=== PATIENT | female | born 1990 | race Two or more races ===

== ENCOUNTER 2019-12-25 17:38 | Emergency (ER) | payer MEDICAID, OTHER ==
[~2019-12-25] VITALS: Ht 157.5 cm; Wt 79.4 kg
[2019-12-25 17:58] VITALS: BP 108/63
[2019-12-25 18:42] LABS: Urine Bacteria NONE SEEN /hpf (None Seen); Urine Blood Negative /uL (Negative); Urine WBC 1 /hpf (0 - 5)
== END 2019-12-26 00:03 | disposition left against medical advice (07) ==
LOC: ER 17:38
DX: R42 Dizziness and giddiness (principal); R11.2 Nausea with vomiting, unspecified; N93.9 Abnormal uterine and vaginal bleeding, unspecified; Z53.21 Procedure and treatment not carried out due to patient leaving prior to being seen by health care provider
CPT/HCPCS: 36415; 76801; 76817; 81001; 81025; 84702

== ENCOUNTER 2019-12-28 15:51 | Emergency (ER) | payer MEDICAID ==
[~2019-12-28] VITALS: Ht 157.5 cm; Wt 79.4 kg
[2019-12-28] MEDS ORDERED: SODIUM CHLORIDE 0.9% 1,000 ML IV ONE (16:15)
[2019-12-28] MEDS ORDERED: PROMETHAZINE HCL 25 MG/ML 1ML IV ONE (16:15)
[2019-12-28 16:52] LABS: Basophils # (auto) 0 10 ^3/uL (0-0.2); Basophils % (auto) 0.5 % (0.0-2.0); Eosinophils # (auto) 0.1 10 ^3/uL (0-0.8); Eosinophils % (auto) 1.3 % (0.0-7.0); Hematocrit 41.1 % (36.0-46.0); Lymphocytes # (auto) 2.5 10 ^3/uL (0.4-5.4); Lymphocytes % (auto) 29.1 % (10.0-50.0); Mean Corpuscular Hemoglobin 30.8 pg (28.0-32.0); Mean Corpuscular Hgb Conc. 34.1 g/dL (32.0-36.0); Mean Corpuscular Volume 90.4 fL (80.0-100.0); Monocytes # (auto) 0.6 10 ^3/uL (0-1.3); Monocytes % (auto) 7.1 % (0.0-12.0); Neutrophils # (auto) 5.4 10 ^3/uL (1.6-8.6); Nucleated Red Blood Cells % 0.1 %; Platelet Count (auto) 239 10^3/uL (140-450); Red Blood Cells 4.54 10^6/uL (4.0-5.20); Red Cell Distribution Width 13.3 % (11.8-14.3); White Blood Cell 8.7 10^3/uL (4.4-10.8)
[2019-12-28 17:07] LABS: Alanine Aminotransferase 21 U/L (13-56); Albumin 3.7 g/dL (3.4-5.0); Anion Gap 6 (5-15); Aspartate Aminotransferase 11 U/L (15-37); BUN/Creatinine Ratio 16.9; Blood Urea Nitrogen 12 mg/dL (7-18); Calcium 8.2 mg/dL (8.5-10.1); Carbon Dioxide 24 mmol/L (21-32); Chloride 107 mmol/L (98-107); GFR African American 127 mL/min; GFR Non-African American 105 mL/min; Glucose 100 mg/dL (74-106); Potassium 3.7 mmol/L (3.5-5.1); Sodium 137 mmol/L (136-145)
[2019-12-28 17:12] LABS: Alkaline Phosphatase 84 U/L (45-117); Bilirubin, Total 0.4 mg/dL (0.2-1.0); Total Protein 7.4 g/dL (6.4-8.2)
[2019-12-28 19:20] VITALS: BP 142/80
[2019-12-28] MEDS ORDERED: ACETAMINOPHEN 500 MG TAB PO ONE (19:30)
[2019-12-28 20:00] LABS: Amphetamine Screen, Urine NEGATIVE (NEGATIVE); Barbiturate Scree,Urine NEGATIVE (NEGATIVE); Benzodiazephine Screen, Urine NEGATIVE (NEGATIVE); Cannabinoid Screen, Urine NEGATIVE (NEGATIVE); Cocaine Screen, Urine NEGATIVE (NEGATIVE); Opiate Scree,Urine NEGATIVE (NEGATIVE); Phencyclidine Screen, Urine NEGATIVE (NEGATIVE)
[2019-12-28 20:28] LABS: Urine Bacteria NONE SEEN /hpf (None Seen); Urine Blood Negative /uL (Negative); Urine Specific Gravity 1.013 (1.001-1.035); Urine WBC <1 /hpf (0 - 5)
== END 2019-12-28 21:10 | disposition home or self-care (01) ==
LOC: ER 15:51
DX: O34.81 Maternal care for other abnormalities of pelvic organs, first trimester (principal); N83.12 Corpus luteum cyst of left ovary; Z3A.01 Less than 8 weeks gestation of pregnancy; Z88.0 Allergy status to penicillin
CPT/HCPCS: 36415; 76801; 76817; 80053; 80307; 81001; 84484; 84702; 85025; 93005

== ENCOUNTER 2020-01-06 20:13 | Emergency (ER) | payer MEDICAID ==
[~2020-01-06] VITALS: Ht 157.5 cm; Wt 79.4 kg
[2020-01-06 21:19] LABS: Urine Bacteria FEW /hpf (None Seen); Urine Blood Negative /uL (Negative); Urine Mucus FEW (None Seen); Urine Specific Gravity 1.032 (1.001-1.035); Urine WBC 4 /hpf (0 - 5)
[2020-01-06 23:03] LABS: Basophils # (auto) 0 10 ^3/uL (0-0.2); Basophils % (auto) 0.4 % (0.0-2.0); Eosinophils # (auto) 0.1 10 ^3/uL (0-0.8); Hematocrit 41.4 % (36.0-46.0); Hemoglobin 14.3 g/dL (12.2-16.2); Lymphocytes # (auto) 2.9 10 ^3/uL (0.4-5.4); Lymphocytes % (auto) 30.9 % (10.0-50.0); Mean Corpuscular Hemoglobin 31.1 pg (28.0-32.0); Mean Corpuscular Hgb Conc. 34.5 g/dL (32.0-36.0); Monocytes # (auto) 0.7 10 ^3/uL (0-1.3); Monocytes % (auto) 7.2 % (0.0-12.0); Neutrophils # (auto) 5.7 10 ^3/uL (1.6-8.6); Neutrophils % (auto) 60.5 % (37.0-80.0); Nucleated Red Blood Cells % 0.1 %; Platelet Count (auto) 259 10^3/uL (140-450); Red Cell Distribution Width 12.8 % (11.8-14.3); White Blood Cell 9.5 10^3/uL (4.4-10.8)
[2020-01-06 23:28] LABS: Calcium 8.9 mg/dL (8.5-10.1); Potassium 3.7 mmol/L (3.5-5.1)
[2020-01-06 23:29] LABS: BUN/Creatinine Ratio 16.2
[2020-01-07 00:30] VITALS: BP 135/92
== END 2020-01-07 02:33 | disposition left against medical advice (07) ==
LOC: ER 20:13
DX: R42 Dizziness and giddiness (principal); Z53.21 Procedure and treatment not carried out due to patient leaving prior to being seen by health care provider
CPT/HCPCS: 36415; 80048; 81001; 84702; 85025

== ENCOUNTER 2023-08-29 20:48 | Emergency (ER) | payer MEDICAID ==
[~2023-08-29] VITALS: Ht 157.5 cm; Wt 87.0 kg
[2023-08-29 23:03] VITALS: BP 117/69; PULSE 71; TEMP 98.4
[2023-08-29] MEDS: CLINDAMYCIN HCL 150 MG CAP PO ONE (23:25)
[2023-08-29] MEDS: ALBUTEROL SULF 2.5 MG/0.5ML(0.5%) NEB SOLN NEB ONE (23:33)
[2023-08-29] MEDS: IPRATROPIUM BROM 0.5 MG/2.5ML INH SOL NEB ONE (23:33)
[2023-08-29 23:34] VITALS: RESP 16; O2SAT 97
[2023-08-29] MEDS: MAALOX PLUS or MAALOX 30 ML PO ONE (23:44)
[2023-08-29] MEDS: ONDANSETRON ODT 4 MG TAB PO ONE (23:44)
[2023-08-30 00:17] LABS: COVID19 ANTIGEN SOFIA FIA NEGATIVE (NEGATIVE)
[2023-08-30] MEDS ORDERED: PRED20TA2 PO (00:56)
[2023-08-30] MEDS ORDERED: CLIN1CAP70 PO (00:56)
[2023-08-30] MEDS ORDERED: COROSUS OT (00:56)
[2023-08-30] MEDS ORDERED: BENZSPR OR (00:56)
[2023-08-30] MEDS ORDERED: GENT0.3S10 EACHEYE (00:56)
[2023-08-30] MEDS ORDERED: ALBUAER3 IN (00:56)
[2023-08-30] MEDS ORDERED: BENZ200C64 PO (00:56)
[2023-08-30] MEDS ORDERED: FAMO20TA10 PO (00:56)
== END 2023-08-30 01:14 | disposition home or self-care (01) ==
LOC: ER 20:48
DX: J03.90 Acute tonsillitis, unspecified (principal); H60.93 Unspecified otitis externa, bilateral; H10.33 Unspecified acute conjunctivitis, bilateral; Z32.02 Encounter for pregnancy test, result negative; Z20.822 Contact with and (suspected) exposure to COVID-19
CPT/HCPCS: 36415; 81025; 87426; 94640; 99283; J7644; Q0162

== ENCOUNTER 2024-03-14 02:26 | Emergency (ER) | payer MEDICAID ==
[~2024-03-14] VITALS: Ht 160 cm; Wt 87.6 kg
[~2024-03-14 02:26] MED LIST: ALBUAER3 IN; BENZ200C64 PO; BENZSPR OR; CLIN1CAP70 PO; COROSUS OT; FAMO20TA10 PO; GENT0.3S10 EACHEYE; PRED20TA2 PO
[2024-03-14] MEDS: ONDANSETRON ODT 4 MG TAB PO ONE (03:14)
[2024-03-14 03:32] VITALS: BP 130/76; TEMP 98.3
[2024-03-14 03:33] VITALS: PULSE 98; RESP 16; O2SAT 98
[2024-03-14] MEDS ORDERED: ONDANSETRON HCL 4 MG/2 ML VIAL IV ONE (04:00)
[2024-03-14] MEDS ORDERED: SODIUM CHLORIDE 0.9% 1,000 ML IV ONE (04:00)
[2024-03-14 04:20] LABS: Basophils # (auto) 0.1 10 ^3/uL (0-0.2); Basophils % (auto) 0.8 % (0.0-2.0); Eosinophils # (auto) 0.1 10 ^3/uL (0-0.8); Eosinophils % (auto) 0.8 % (0.0-7.0); Hematocrit 39.3 % (36.0-46.0); Hemoglobin 13.7 g/dL (12.2-16.2); Lymphocytes # (auto) 1.7 10 ^3/uL (0.4-5.4); Lymphocytes % (auto) 22.1 % (10.0-50.0); Mean Corpuscular Hemoglobin 31.6 pg (28.0-32.0); Mean Corpuscular Hgb Conc. 34.8 g/dL (32.0-36.0); Mean Corpuscular Volume 90.8 fL (80.0-100.0); Monocytes # (auto) 0.5 10 ^3/uL (0-1.3); Neutrophils # (auto) 5.4 10 ^3/uL (1.6-8.6); Neutrophils % (auto) 69.3 % (37.0-80.0); Platelet Count (auto) 243 10^3/uL (140-450); Red Blood Cells 4.33 10^6/uL (4.0-5.20); Red Cell Distribution Width 12.8 % (11.8-14.3); White Blood Cell 7.8 10^3/uL (4.4-10.8)
[2024-03-14 04:26] LABS: Chloride 108 mmol/L (98-107); Potassium 3.9 mmol/L (3.5-5.1); Sodium 140 mmol/L (136-145)
[2024-03-14 04:27] LABS: Anion Gap 6 (5-15); Calcium 9.2 mg/dL (8.7-10.4); Carbon Dioxide 26 mmol/L (20-31)
[2024-03-14 04:32] LABS: BUN/Creatinine Ratio 10.4 (10.0-20.0); Blood Urea Nitrogen 8 mg/dL (9-23); Glucose 107 mg/dL (74-106)
== END 2024-03-14 05:02 | disposition left against medical advice (07) ==
LOC: ER 02:26
DX: E86.0 Dehydration (principal); R10.2 Pelvic and perineal pain; R11.2 Nausea with vomiting, unspecified; R19.7 Diarrhea, unspecified; Z88.0 Allergy status to penicillin; Z79.899 Other long term (current) drug therapy; Z98.890 Other specified postprocedural states
CPT/HCPCS: 36415; 80048; 84702; 85025; 99283; Q0162